=== PATIENT | female | born 1950 | race African-American/Black ===

== ENCOUNTER 2016-07-23 09:59 | Emergency (ER) | payer OTHER ==
[~2016-07-23] VITALS: Ht 165.1 cm; Wt 77.1 kg
[~2016-07-23 09:59] MED LIST: BACLOFEN 10MG T10 MG PO; BACTRIM DS TAB1 EACH PO; FLEXERIL PO; FLONASE 0.05%50 MCG NASAL; HYDROCODON-ACE1 EAC5 PO; IBUPROFEN 200200 M1 PO; MUCOSA400 MG PO; NORFLEX100 MG PO; PRILOSEC20 MG PO; PYRIDIUM100 M1 PO; TRAMADOL 50 MG50 MG PO; ULTRAM 50MG TAB50 MG PO; ZPAK PO
[2016-07-23] MEDS ORDERED: NORCO 5-325 TA1 EACH PO (10:24)
[2016-07-28] MEDS ORDERED: NEURONTIN 300300 M1 PO (09:22)
[2016-07-28] MEDS ORDERED: AMITRIPTYLINE H10 M3 PO (09:22)
[2016-09-12] MEDS ORDERED: IBUPROFEN 800800 M1 PO (11:59)
[2016-09-12] MEDS ORDERED: NORCO 5-325 TA1 EACH PO (12:00)
[2016-09-12] MEDS ORDERED: NEURONTIN300 MG PO (12:00)
== END 2016-07-23 10:51 | disposition home or self-care (01) ==
LOC: ER 09:59
DX: M54.5 Low back pain (principal); F10.99 Alcohol use, unspecified with unspecified alcohol-induced disorder; Z98.890 Other specified postprocedural states; Z88.5 Allergy status to narcotic agent; Z87.891 Personal history of nicotine dependence

== ENCOUNTER 2016-09-27 05:15 | Inpatient (IN) | payer OTHER ==
[2016-09-21 09:28] LABS: HEMATOCRIT 39.7 % (37.0-47.0); HEMOGLOBIN 12.7 gm/dL (12.0-15.0); MCH 25.1 pg (26.0-34.0); MCHC 32.1 g/dL (28.0-37.0); MCV 78.2 fL (80.0-100.0); RBC 5.08 mil/uL (4.20-5.00); WBC 7.1 thou/uL (4.0-11.0)
[2016-09-21 09:30] LABS: URINE BILIRUBIN NEGATIVE (Negative); URINE BLOOD NEGATIVE (Negative); URINE COLOR YELLOW; URINE GLUCOSE-RANDOM* NEGATIVE (Negative); URINE KETONES NEGATIVE (Negative); URINE LEUKOCYTES-REFLEX TRACE (Negative); URINE PROTEIN (DIPSTICK) NEGATIVE (Negative); URINE SPECIFIC GRAVITY 1.015 (1.003-1.035)
[2016-09-21 09:36] LABS: CALCIUM 8.9 mg/dL (8.5-10.1); CREATININE 0.8 mg/dL (0.6-1.3); POTASSIUM 3.5 mmol/L (3.5-5.1)
[~2016-09-27] VITALS: Ht 165.1 cm; Wt 78.5 kg
--- NOTE | ~2016-09-27 | H ---
[facility] [place] [address] HISTORY AND PHYSICAL Name: REBEKAH GUEVARA Room #: 150-6 ADM IN M.R.#: [id number] Admission: 09/27/16 Attend Phys: Roque Pacheco MD Discharge: Date of : 46 Report #: [id number] THIS REPORT FOR: //name// CC: Josh Pacheco DATE OF SERVICE: 09/27/2016 CHIEF COMPLAINT: Left hip and left leg pain. HISTORY OF PRESENT ILLNESS: The patient is a pleasant 66-year-old left-handed -[place] female who presented to the hospital for definitive surgical management of lumbar stenosis. The patient initially presented to the outpatient neurosurgery clinic with a history of pain since 2013. The patient reports her pain began spontaneously with no associated history of trauma or falls. Pain has progressively worsened over time. Patient describes severe pain from back into the left hip across the hip into the groin radiating down front of lower leg to the foot, medial plantar aspect of her left foot. The patient secondarily describes focal pain in the lateral aspect of her knee. The patient was initially managed conservatively with lumbar epidural steroid injections which she reports was helpful, but her pain persisted. At the present time, lumbar epidural steroid injections are no longer effective treatment measure. The patient was advised by Dr. Segundo Crystal from the [facility] to seek additional treatment. The patient was placed on gabapentin, but she does not perceive that the medication has provided significant benefit. She reports that she is limping severely with the left leg. She reports that pain in the nighttime results in poor sleep hygiene. She self reports her pain at 10/10 on visual analog scale for pain. The patient has been unable to walk secondary to pain. She denies any right-sided lower extremity radicular complaints. No neck pain or upper extremity radicular complaints. No change in bowel or bladder habits. She offers no other complaints at this time. The patient presents today for definitive surgical management of her persistent and medically refractory pain complaint. PAST MEDICAL HISTORY: Includes headaches and cold sores. PAST SURGICAL HISTORY: Denied. SOCIAL HISTORY: The patient is . She is unable to work presently, but has recently had been employed as a . She has 6 adult children. She denies tobacco use. She consumes alcohol 1-2 times per week. FAMILY HISTORY: Noncontributory to current assessment. HOME MEDICATIONS: Include Baclofen, Flexeril, tramadol, hydrocodone, gabapentin, and ibuprofen. [address] [address] HISTORY AND PHYSICAL Name: REBEKAH GUEVARA Room #: 150-6 [facility] IN [facility]#: [id number] Admission: 09/27/16 Attend Phys: Roque Pacheco MD Discharge: Date of : 48 Report #: [id number] ALLERGIES: Documented to CODEINE which causes nausea. REVIEW OF SYSTEMS: A 13-point review of systems was performed, which was positive for using corrective lenses, weight gain, fatigue and eye pain. The remainder of the patient's review of systems was negative for any additional healthcare issues other than those noted in the history of present illness or past medical history. PHYSICAL EXAMINATION: GENERAL: The patient is a well-developed, well-nourished -[place]rainian female in no acute distress. She has a relatively normal body habitus. There are no dysmorphic features appreciated of her ears, eyes, nose or face. HEAD: Normocephalic and atraumatic. EYES: Pupils appears equal and reactive. Her extraocular muscles appeared to be full and sclerae are nonicteric. ORAL CAVITY: Demonstrates normal moist mucosa. Her tongue protrudes in midline. Uvula and palate seem to elevate symmetrically. She has relatively poor dentition. NECK: Patient's cervical spine is soft and supple. Trachea is midline. Cervical range of motion appears normal. SKIN: Warm and dry with good turgor. BACK: Demonstrates no obvious scoliosis, kyphosis or deformity. MUSCULOSKELETAL: Demonstrates no swelling or significant deformity in the upper or lower extremities. EXTREMITIES: There is no cyanosis, clubbing, edema appreciated. Capillary refill is normal. Peripheral pulses are +2 at the radial artery at the wrist bilaterally. NEUROLOGICAL: The patient is alert and oriented to person, place and time. Her cognitive exam is grossly normal. No abnormal cerebellar findings appreciated. The patient's muscle tone and bulk appeared normal. Cranial nerves 2-12 appeared grossly intact. The patient's motor strength is 5/5 and symmetric in bilateral upper as well as lower extremities with exception of pain on examination of left lower extremity. The patient's deep tendon reflexes are normal and symmetric 2/4 in the bilateral biceps, triceps, brachioradialis, patella, and Achilles tendons. No abnormal pectoral, Daniels's, or crossed adductor reflexes were elicited. No clonus was elicited at the ankles. The patient does have difficulty rising from a seated position. She walks with an antalgic gait favoring the left lower extremity. Sensation does appear grossly intact to light touch, pinprick and proprioception in the bilateral upper as well as the lower extremities. PSYCHIATRIC: On psychological examination, the patient is cooperative with the examiner. She demonstrates good eye contact. Her speech is clear. Judgment and insight are reasonable. Thought process appeared logical and goal-directed. Her mood and affect appeared full range. [address] [place] [address] HISTORY AND PHYSICAL Name: REBEKAH GUEVARA Room #: 150-6 ADM IN M.R.#: [id number] Admission: 09/27/16 Attend Phys: Roque Pacheco MD Discharge: Date of : 46 Report #: [id number] IMAGING STUDIES: The patient has an MRI of the lumbar spine from [facility] performed in 2017, which demonstrates grade 1 spondylolisthesis of L4-L5. There is exaggeration of the normal lumbar lordosis. The patient has significant facet arthropathy at L4-L5. There is moderate central and neural foraminal stenosis appreciated at L4-L5. Degenerative changes at L4-L5 appear secondary to moderate to severe bilateral facet arthropathy. The patient also submitted to lateral lumbar x-rays including lateral images in flexion and extension performed at [facility] in 2017, which demonstrates a grade 1 spondylolisthesis at L4-L5 which increases during flexion, but does not change significantly in extension to neutral views. DIAGNOSES: Lumbar spondylosis, lumbar stenosis, L4-L5 spondylolisthesis. PLAN: 1. We reviewed the patient's presenting complaints as well as their probable relationship with available clinical and radiographic data. 2. The patient is most likely symptomatic from L4-L5 spondylolisthesis and associated degenerative changes, which are likely related to L4 neural foraminal stenosis. 3. We reviewed options to improve the patient's presenting complaints including both continuing conservative management versus surgical intervention. At this point in time, given the nature and persistence of her complaints, negative impact of these complaints on her daily life and in correlation with the available imaging studies, I have recommended that the patient pursue a surgical option. 4. Specifically, I have advised the patient submit to a left-sided L4-L5 transforaminal lumbar interbody fusion with bilateral L4-L5 pedicle screw and brynana fixation. The patient has had the opportunity to have her questions answered to her satisfaction. She has acknowledged understanding of discussion as well as proposed plan of care. 5. The risk of surgery included but not exclusively limited to bleeding, infection, risk of cerebrospinal fluid leak and its consequences, potential for injury to local structures including the nerve roots, which could result in permanent pain or disability, potential for failure of surgical intervention with residual or recurrent symptoms, potential for development of additional regions of structural instability which may require further surgical intervention as well as risks of undergoing hospitalization and general anesthesia. 6. After careful consideration of our discussion, the patient has expressed her decision to proceed with surgical management as previously discussed. 7. We will proceed with surgical intervention including a left-sided L4-L5 transforaminal lumbar interbody fusion with bilateral L4-L5 pedicle screw and bryanna fixation. 8. It is anticipated that the patent will recover in the standard medical/surgical floor following recovery from anesthesia in the postanesthesia care unit. [address] [address] HISTORY AND PHYSICAL Name: REBEKAH GUEVARA ROY Room #: 150-6 ADM IN M.R.#: [id number] Admission: 09/27/16 Attend Phys: Roque Pacheco MD Discharge: Date of : 48 Report #: [id number] 9. It is further anticipated that the patient will follow up in the outpatient neurosurgery clinic after discharge from the hospital per routine. By: [id number] Roque Pacheco MD /nt
--- NOTE | ~2016-09-27 | O ---
[address] [address] OPERATIVE REPORT Name: REBEKAH GUEVARA Room #: 150-6 ADM IN M.R.#: [id number] Admission: 09/27/16 Attend Phys: Roque Pacheco MD Discharge: Date of : 48 Report #: [id number] THIS REPORT FOR: //name// CC: Josh Pacheco DATE OF SERVICE: 09/27/2016 PREOPERATIVE DIAGNOSES: 1. Lumbar spondylosis. 2. Lumbar stenosis. 3. L4-L5 spondylolisthesis. POSTOPERATIVE DIAGNOSES: 1. Lumbar spondylosis. 2. Lumbar stenosis. 3. L4-L5 spondylolisthesis. PROCEDURE PERFORMED: 1. Left sided L4-L5 transforaminal lumbar interbody fusion. 2. Placement of biomechanical intervertebral device at L4-L5. 3. Bilateral placement of pedicle screw and bryanna fixation at L4-L5. 4. Intraoperative neurophysiologic monitoring. 5. Use of fluoroscopy for intraoperative localization. 6. Use of operating microscope to provide illumination and magnification for microdissection. SURGEON: Roque Pacheco MD. WEB SOLUTIONS ARCHITECT: None. ANESTHESIA: General endotracheal. INTRAOPERATIVE FLUIDS: 2200 mL of crystalloid. URINE OUTPUT: 400 mL. ESTIMATED BLOOD LOSS: 100 mL. SPECIMEN: None. COMPLICATIONS: None apparent. FINDINGS: Neural foraminal stenosis and spondylolisthesis at L4-L5, secondary to significant facet arthropathy and ligamentous hypertrophy. [address] [address] OPERATIVE REPORT Name: REBEKAH GUEVARA Room #: 150-6 [facility] IN [facility]#: [id number] Admission: 09/27/16 Attend Phys: Roque Pacheco MD Discharge: Date of : 48 Report #: [id number] HISTORY: The patient is a pleasant 66-year-old with symptoms predominantly consistent of left L4 radiculopathy. Imaging studies demonstrated the presence of L4-L5 spondylolisthesis with bilateral left greater than right neural foraminal stenosis. The patient has failed conservative therapy. At this point in time, she is seeing a decrease in her functional status secondary to pain. The patient was counseled in the outpatient setting regarding further conservative therapy versus surgical intervention. At this point in time, given the nature and persistence of her complaints, negative impact of these complaints on her daily life, and in correlation with the available imaging studies, I have recommended the patient to pursue a surgical option. The goals of surgery, as well as risks and benefits were reviewed with the patient in outpatient clinical setting and is adequately documented in the outpatient clinic chart. The patient and her family have acknowledged the understanding of this discussion, and they wished to proceed with surgery. Consent was signed and placed on the chart. DESCRIPTION OF PROCEDURE: The patient was taken to the operating room by Anesthesia, having IVs placed preoperatively. She underwent successful placement of an endotracheal tube for general endotracheal anesthesia. Antibiotics were given per protocol. Aviles catheter was placed. The patient was then gently rotated from supine to prone position on top of the radiolucent Jose frame on top of the open top Bola spine table. Her arms were gently rotated to be positioned above her head with care taken to maintain elbows and shoulders at less than 90 degrees of flexion. All pressure points were checked and found to be adequately padded. The patient's back was then cleaned, prepped, and draped in the usual sterile fashion. C-arm fluoroscopic unit was draped in the field sterilely to assist with intraoperative localization. Neurophysiologic monitoring was initiated with somatosensory evoked potentials and free running EMGs. An external skin marker was then used to identify the spinal midline and 2 parallel incisions were drawn from the top of the L4 pedicle to the bottom of the L5 pedicle. These 2 parallel incisions were drawn 3.5 cm lateral to the midline. Next, the marked incisions were infiltrated with 10 mL of 1% lidocaine with epinephrine each. The skin was incised with #10 blade down to the thoracolumbar fascia. Thoracolumbar fascia was incised with the same blade. Next, safety wires were placed in bilateral pedicles of L4 and L5 using Jamshidi needles under AP and lateral fluoroscopic guidance. Next, the safety wires were bent out of field. Additionally, a K-wire was passed through the wound and fascia opening on the left side, docked on the left lamina of L4. Over this, K-wire was passed, serial dilators from [employer] METRx retractor tray. When the wound was successfully dilated to 26 mm, a 26 mm x 7 cm long METRx retractor was passed over the dilators and secured to the table with articulating arm. The dilators were removed. The position and adequacy of the retractor was verified with lateral C-arm fluoroscopy. Next, the muscles overlying the left L4 lamina were reduced with Bovie electrocautery. High speed pneumatic drill with jack matchstick tip bur was then used to initiate laminotomy at L4-L5 on the left side. Once the ligamentum flavum was [facility] [address] [place] [address] OPERATIVE REPORT Name: REBEKAH GUEVARA Room #: 150-6 ADM IN M.R.#: [id number] Admission: 09/27/16 Attend Phys: Roque Pacheco MD Discharge: Date of : 48 Report #: [id number] identified, the laminotomy was expanded with various sized Kerrison punches. An osteotome mallet was then used to disarticulate the inferior articular facet of L4. High speed pneumatic drill with jack matchstick tip bur was then used to remove the superior articulating facet of L5. Next, the ligamentum flavum was then perforated with blunt nerve hook exposing the underlying dura. With the dura in plain view, ligamentum flavum was resected with various sized Kerrison punches. The epidural venous complex was bipolar electrocauterized and sectioned with microscissors. The lateral edge of thecal sac and the shoulder of the L5 nerve root were medially deviated. The L4 nerve root was identified. Next, a #11 blade was used to perform annulotomy at L4-L5. Disk material was then recovered from the L4-L5 disk space. Next, disk space distractors from Medtronic Steven Winston [employer] instrument tray were tamped in to disk space. Disk space was distracted to 11 mm. Attention then returned to the right side, over the previously placed safety wires, polyaxial pedicle screws from Medtronic Sextant Solera instrument tray were placed at L4 and L5 using 6.5 x 50 mm polyaxial screws. A 35 mm prebent cobalt chrome bryanna was then passed between the screw heads using the Sextant apparatus, through a separate stab incision. Using the reduction capacity of the screws, the patient's spondylolisthesis was reduced to a neutral position. Set screws were temporarily tightened in position. Attention returned to the right side where the previously placed disk space distractor was removed. Disk space was then cleared of disk material. It was evident, the patient's spondylolisthesis was improved. Tension on the left L4 nerve root appeared improved. Further dissection helps to clear more space around the left L4 and L5 nerve roots. Next, trials from seasonax [employer]tr[employer] Steven Winston [employer]one instrument tray were tamped in to disk space, and an 11 x 26 mm implant appeared to fit appropriately. The trial was removed and disk space was then rasped with an upbiting curette. Residual disk material and cartilaginous endplate was removed from the disk space. Next, the patient's own local autograft bone, which was harvested during the decompression was morcellized and packed within the L4-L5 disk space, as well as a half of a sponge from seasonax GmbHtronic Extra Small Infuse kit. Second half of the sponge was placed within 11 x 26 mm Medtronic Capstone PTC biomechanical intervertebral device, which was then tamped in the L4-L5 disk space. Having secured the interbody spacer and autograft bone material in place, the wound was copiously irrigated with bacitracin containing irrigation. Meticulous hemostasis obtained with bipolar electrocautery and FloSeal. Retractor tube was withdrawn to the skin surface. The set screws on the right side were tightened to their torque limited breakoff point. The Sextant apparatus and screw assemblies were removed. In similar fashion, 6.5 x 50 mm polyaxial Medtronic Sextant Solera pedicle screws were placed at L4 and L5 on the left side. Again, a 35 mm prebent cobalt chrome bryanna was passed between the screw heads using the Sextant apparatus. Set screws were tightened in to position, and then tightened to their torque-limited breakoff point. The Sextant apparatus and screw assembly was removed. The wounds were copiously irrigated with bacitracin-containing irrigation. Meticulous hemostasis was maintained with bipolar electrocautery and FloSeal. The muscle and fascia was closed with interrupted 2-0 Vicryl stitches. A 20 mL of 0.75% Marcaine with [facility] [address] [place] [address] OPERATIVE REPORT Name: REBEKAH GUEVARA Room #: 150-6 [facility] IN M.R.#: [id number] Admission: 09/27/16 Attend Phys: Roque Pacheco MD Discharge: Date of : 48 Report #: [id number] epinephrine was injected in the paraspinous muscle to act as local anesthesia. The skin itself was then closed with inverted interrupted 2-0 Vicryl stitches and running 4-0 subcuticular Vicryl stitch. Dressings of Mastisol, Steri-Strips, Telfa, and Tegaderm were applied. The patient was then returned from the prone back to supine position on the recovery room bed. She was awoken from anesthesia and taken to PACU in hemodynamically stable and satisfactory condition. All needle, sponge, and instrument counts were correct times 2 per nursing at the end of the case. Neurophysiologic monitoring remained stable. Direct pedicle screw stimulation failed to identify any significant abnormal EMG activity above the standard threshold values. By: [id number] Roque Pacheco MD /nt
--- NOTE | ~2016-09-27 | EKG ---
[place] [address] [address] [facility] [place] [place] [address] ELECTROCARDIOGRAM REPORT Name: GUEVARAREBEKAH ROY Room #: PRE IN [facility]#: [id number] Admission: Attend Phys: Roque Pacheco MD Discharge: Date of : 48 Report #: [id number] THIS REPORT FOR: //name// 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: Renea SHEPHERD : 1950 Requested By: Roque Pacheco Order Number: [id number] MD: John Dotson Measurements Intervals [place] Rate: 79 P: 37 CT: 131 QRS: -11 QRSD: 101 T: 64 QT: 396 QTc: 455 Interpretive Statements Sinus rhythm Baseline wander in lead(s) II,aVF No previous ECG available for comparison Electronically Signed On 09-22-2016 8:22:55 CDT by John Dotson [email or web address] <ELECTRONICALLY SIGNED> By: John Dotson MD, [facility] 09/22/16 0822 0931 09 John Dotson MD, FACC /EPI
[~2016-09-27 05:15] MED LIST changes: +AMITRIPTYLINE H10 M3 PO; +IBUPROFEN 800800 M1 PO; +NEURONTIN 300300 M1 PO; +NEURONTIN300 MG PO; +NORCO 5-325 TA1 EACH PO
[2016-09-27 08:15] LABS: URINE BILIRUBIN NEGATIVE (Negative); URINE BLOOD TRACE (Negative); URINE COLOR YELLOW; URINE GLUCOSE-RANDOM* NEGATIVE (Negative); URINE KETONES NEGATIVE (Negative); URINE NITRITE NEGATIVE (Negative); URINE PROTEIN (DIPSTICK) NEGATIVE (Negative); URINE SPECIFIC GRAVITY 1.015 (1.003-1.035)
[2016-09-27 09:12] VITALS: BP 158/75
[2016-09-27 17:40] VITALS: BP 175/93
[2016-09-27 18:00] VITALS: BP 168/82
[2016-09-27 18:30] VITALS: BP 153/70
[2016-09-27 19:00] VITALS: BP 156/87
[2016-09-27 20:00] VITALS: BP 144/73
[2016-09-28] VITALS: BP 133/62
[2016-09-28 04:00] VITALS: BP 130/60
[2016-09-28 05:20] LABS: HEMATOCRIT 31.3 % (37.0-47.0); HEMOGLOBIN 10.2 gm/dL (12.0-15.0); MCH 25.4 pg (26.0-34.0); MCHC 32.7 g/dL (28.0-37.0); MCV 77.8 fL (80.0-100.0); RBC 4.02 mil/uL (4.20-5.00); RDW 14.9 % (10.5-14.5); WBC 7.5 thou/uL (4.0-11.0)
[2016-09-28 05:28] LABS: CALCIUM 8.1 mg/dL (8.5-10.1); CREATININE 0.8 mg/dL (0.6-1.3)
[2016-09-28 07:45] VITALS: BP 132/59
[2016-09-28 13:01] VITALS: BP 134/59
[2016-09-28 15:24] VITALS: BP 118/62
[2016-09-28 20:21] VITALS: BP 114/56
[2016-09-29 04:05] VITALS: BP 143/67
[2016-09-29 08:16] VITALS: BP 145/64
[2016-09-29 16:23] VITALS: BP 145/64
[2016-09-29 16:46] VITALS: BP 138/48
[2016-09-29 20:00] VITALS: BP 137/66
[2016-09-29 20:49] VITALS: BP 137/66
[2016-09-30 05:54] VITALS: BP 145/57
[2016-09-30 07:46] VITALS: BP 147/64
[2016-09-30] MEDS ORDERED: LEVAQUIN 500 M500 M2 PO (11:05)
[2016-09-30] MEDS ORDERED: NORCO 10-325 T1 EACH PO (11:06)
[2016-09-30] MEDS ORDERED: FLEXERIL PO (11:06)
[2016-09-30] MEDS ORDERED: NAPROSYN500 MG PO (11:07)
[2016-09-30 12:42] VITALS: BP 145/64
== END 2016-09-30 14:45 | disposition home health service (06) | DRG 460 ==
LOC: TBA 05:15 → 5S 05:15 → PRE 13:51 → 5S 17:41
PROVIDERS: Neurological Surgery; Nurse Practitioner Acute Care
PROC: 0SG00AJ Fusion of Lumbar Vertebral Joint with Interbody Fusion Device, Posterior Approach, Anterior Column, Open Approach (ICD-10-PCS; principal; 2016-09-27)
PROC: 4A11X4G Monitoring of Peripheral Nervous Electrical Activity, Intraoperative, External Approach (ICD-10-PCS; principal; 2016-09-27)
PROC: 0SB20ZZ Excision of Lumbar Vertebral Disc, Open Approach (ICD-10-PCS; principal; 2016-09-27)
DX: M47.896 Other spondylosis, lumbar region (principal); N39.0 Urinary tract infection, site not specified; M48.06 Spinal stenosis, lumbar region; M43.16 Spondylolisthesis, lumbar region; G89.29 Other chronic pain; M54.9 Dorsalgia, unspecified; M54.16 Radiculopathy, lumbar region; M81.0 Age-related osteoporosis without current pathological fracture; Z88.6 Allergy status to analgesic agent; Z79.899 Other long term (current) drug therapy
CPT/HCPCS: 10785; 50010; 50101; 50402; 50455; 50515; 50522; 50743; 50744; 50745; 50746; 50747; 50771; 50782; 50850; 50860; 50923; 51751; 51779; 51878; 53210; 56526; 56532; 56651; 62110; 62900; 70005

== ENCOUNTER → 2016-12-11 | Outpatient (CLI) | payer OTHER ==
[~2016-12-11] MED LIST changes: +LEVAQUIN 500 M500 M2 PO; +MACROBID 100 M100 M1 PO; +NAPROSYN500 MG PO; +NORCO 10-325 T1 EACH PO
== END ==
LOC: RAD 07:53
DX: M48.06 Spinal stenosis, lumbar region (principal); Z98.1 Arthrodesis status